=== PATIENT | male | born 1965 | race Hispanic/Latino ===

== ENCOUNTER 2018-09-12 02:37 | Emergency (ER) | payer SELFPAY ==
[2018-09-12] MEDS ORDERED: THIAMINE 200 MG/2 ML INJ ONE (03:08)
[2018-09-12] MEDS ORDERED: NA CHLORIDE 0.9% 1,000 ML ONE (03:08)
[2018-09-12] MEDS ORDERED: MULTIVITAMINS 10 ML VIAL (INJ) IV ONE (03:08)
[2018-09-12] MEDS ORDERED: FOLIC ACID 5 MG/ML VIAL ONE (03:10)
[2018-09-12 03:36] LABS: Absolute Lymphocytes (CBC) 3.6 K/uL (0.7-4.9); Absolute Neutrophil 11.4 K/uL (1.8-8.0); Basophils % 0.4 % (0-1.3); Eosinophils % 0.2 % (0-4.4); Lymphocytes % 22.4 % (15.3-44.8); MPV 9.1 fL (7.6-11.3); RBC Red Blood Cell Count 5.05 M/uL (4.33-5.43)
[2018-09-12 03:45] LABS: ALT/SGPT 41 U/L (12-78); AST/SGOT 23 U/L (15-37); Alkaline Phosphatase 110 U/L (45-117); BUN Blood Urea Nitrogen 23 mg/dL (7-18); Bicarbonate 25 mmol/L (21-32); Bilirubin Direct < 0.1 mg/dL (0-0.2); Bilirubin Total 0.2 mg/dL (0.2-1.0); Glucose Level 242 mg/dL (74-106); Potassium 3.7 mmol/L (3.5-5.1); Protein, Total 8.1 g/dL (6.4-8.2); Sodium Level 140 mmol/L (136-145)
--- NOTE | 2018-09-12 04:18 | EDPHYS ---
Physician Documentation [facility] Name: Zac Herndon Jr Age: 53 yrs Sex: Male : 1965 Arrival Date: 09/12/2018 Time: 02:38 Bed 4 Private MD: Osmar Berumen V ED Physician Alex Galdamez HPI: 09/12 03:28 This 53 yrs old Male presents to ER via Wheelchair with complaints of Head pkl Injury-Adult, Fall Injury. 03:29 The patient or guardian reports pain, swelling. The complaints affect the vertex. pkl Context of injury: resulted from a fall. Onset: The symptoms/episode began/occurred just prior to arrival. Associated signs and symptoms: Loss of consciousness: This patient experience a loss of consciousness, unable to remember how long. Patient admits to drinking alcohol earlier. Historical: - Allergies: 02:50 No Known Allergies; rr5 - Home Meds: 02:50 None [Active]; rr5 - PMHx: 02:50 None; rr5 - PSHx: 02:50 None; rr5 - Immunization history:: Adult Immunizations up to date. - Social history:: Smoking status: Patient/guardian denies using tobacco, Patient uses alcohol, occasionally. Patient/guardian denies using street drugs. - Ebola Screening: : Patient negative for fever greater than or equal to 101.5 degrees Fahrenheit, and additional compatible Ebola Virus Disease symptoms Patient denies exposure to infectious person Patient denies travel to an Ebola-affected area in the 21 days before illness onset. ROS: 03:29 Eyes: Negative for injury, pain, redness, and discharge, ENT: Negative for injury, pkl pain, and discharge, Neck: Negative for injury, pain, and swelling, Cardiovascular: Negative for chest pain, palpitations, and edema, Respiratory: Negative for shortness of breath, cough, wheezing, and pleuritic chest pain, Abdomen/GI: Negative for abdominal pain, nausea, vomiting, diarrhea, and constipation, Back: Negative for injury and pain, : Negative for injury, bleeding, discharge, and swelling, MS/Extremity: Negative for injury and deformity. 03:29 Skin: Positive for hematoma, vertex. 03:29 Neuro: Positive for loss of consciousness, hematoma vertex. Exam: 03:29 Eyes: Pupils equal round and reactive to light, extra-ocular motions intact. Lids and pkl lashes normal. Conjunctiva and sclera are non-icteric and not injected. Cornea within normal limits. Periorbital areas with no swelling, redness, or edema. 03:29 Head/face: Noted is hematoma, that is moderate, of the vertex. 03:29 ENT: Exam is negative for acute changes. 03:29 Neck: Exam negative for obvious evidence of injury or deformity, nuchal rigidity. 03:29 Chest/axilla: Exam negative for acute changes. 03:29 Cardiovascular: Rate: normal, Rhythm: regular. 03:29 Respiratory: the patient does not display signs of respiratory distress, Respirations: normal, Breath sounds: are clear throughout. 03:29 Abdomen/GI: Bowel sounds: normal, Palpation: abdomen is soft and non-tender, in all quadrants. 03:29 Back: Exam negative for acute changes. 03:29 : Exam negative for acute changes. 03:29 Musculoskeletal/extremity: Exam is negative for acute changes. 03:29 Skin: Exam negative for rash. 03:29 Neuro: Orientation: is normal, Mentation: is normal, Cranial nerves: grossly normal, Cerebellar function: normal finger to nose testing, heel to cabral testing is normal, Motor: is normal, Gait: is steady. Vital Signs: 02:45 BP 131 / 92; Pulse 95; Resp 17; Temp 97.8; Pulse Ox 100% ; Weight 81.65 kg; Height 5 rr5 ft. 5 in. (165.10 cm); 03:30 BP 112 / 72; Pulse 86; Resp 15; Pulse Ox 96% ; rr5 04:00 BP 104 / 63; Pulse 85; Resp 15; Pulse Ox 100% ; rr5 04:30 BP 117 / 76; Pulse 89; Resp 16; Pulse Ox 99% ; rr5 05:15 BP 115 / 71; Pulse 80; Resp 17; Pulse Ox 99% ; rr5 02:45 Body Mass Index 29.95 (81.65 kg, 165.10 cm) rr5 [place] Coma Score: 02:45 Eye Response: spontaneous(4). Verbal Response: oriented(5). Motor Response: obeys rr5 commands(6). Total: 15. 03:29 Eye Response: spontaneous(4). Verbal Response: oriented(5). Motor Response: obeys pkl commands(6). Total: 15. MDM: 02:42 Patient medically screened. pkl 04:16 Data reviewed: vital signs, nurses notes, lab test result(s), radiologic studies, CT pkl scan. 09/12 02:53 Order name: CBC with Diff; Complete Time: 03:43 pkl 09/12 02:53 Order name: Chem 7; Complete Time: 03:47 pkl 09/12 02:53 Order name: LFT's; Complete Time: 03:47 pkl 09/12 02:53 Order name: ETOH Level; Complete Time: 04:19 pkl 09/12 02:53 Order name: CT Head Brain wo Cont pkl Administered Medications: 03:20 Drug: Banana Bag - (NS 0.9% 1000 ml, foLIC Acid 1 mg, Thiamine 100 mg, Multivitamin 1 ea amp) Route: IV; Rate: calculated rate; Site: left antecubital; 05:15 Follow up: Response: No adverse reaction; IV Status: Completed infusion; IV Intake: rr5 1000ml Disposition: 09/12/18 04:17 Discharged to Home. Impression: Head injury. Hematoma scalp. S/P Fall. Ingestion of alcohol. - Condition is Stable. - Medication Reconciliation Form, Thank You Letter, Antibiotic Education, Prescription Opioid Use form. - Follow up: Osmar Berumen MD; When: 2 - 3 days; Reason: Re-evaluation by your physician. - Problem is new. - Symptoms have improved. Signatures: Dispatcher [employer] EDMS Alex Galdamez MD MD pkCaridad Dhillon RN Abel Kang ea RN RN rr5 Corrections: (The following items were deleted from the chart) 05:19 04:17 09/12/2018 04:17 Discharged to Home. Impression: Head injury. Hematoma scalp. S/P rr5 Fall. Ingestion of alcohol. Condition is Stable. Forms are Medication Reconciliation Form, Thank You Letter, Antibiotic Education, Prescription Opioid Use. Follow up: Osmar Berumen; When: 2 - 3 days; Reason: Re-evaluation by your physician. Problem is new. Symptoms have improved. pkl
--- NOTE | 2018-09-12 04:18 | ER ---
Nurse's Notes [facility] Name: Zac Herndon Jr Age: 53 yrs Sex: Male : 1965 Arrival Date: 09/12/2018 Time: 02:38 Bed 4 Private MD: Osmar Berumen V Diagnosis: Head injury. Hematoma scalp. S/P Fall. Ingestion of alcohol Presentation: 09/12 02:45 Presenting complaint: states: he fell down in the bathroom hit his head and walked rr5 back to bed cannot remember what really happened according to him. around 20 minutes ago that was. 02:45 Transition of care: patient was not received from another setting of care. Mechanism of rr5 Injury: The problem was sustained at home, resulted from a fall, slipped. Risk considerations:. Onset of symptoms was September 12, 2018. Risk Assessment: Do you want to hurt yourself or someone else? Patient reports no desire to harm self or others. Initial Sepsis Screen: Does the patient meet any 2 criteria? No. Patient's initial sepsis screen is negative. Does the patient have a suspected source of infection? No. Patient's initial sepsis screen is negative. 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 Care prior to arrival: None. 02:45 Method Of Arrival: Wheelchair rr5 02:45 Acuity: DONNIE 3 rr5 Triage Assessment: 03:30 Neuro: Reports fell down in the bathroom. rr5 Historical: - Allergies: 02:50 No Known Allergies; rr5 - Home Meds: 02:50 None [Active]; rr5 - PMHx: 02:50 None; rr5 - PSHx: 02:50 None; rr5 - Immunization history:: Adult Immunizations up to date. - Social history:: Smoking status: Patient/guardian denies using tobacco, Patient uses alcohol, occasionally. Patient/guardian denies using street drugs. - Ebola Screening: : Patient negative for fever greater than or equal to 101.5 degrees Fahrenheit, and additional compatible Ebola Virus Disease symptoms Patient denies exposure to infectious person Patient denies travel to an Ebola-affected area in the 21 days before illness onset. Screenin:50 Abuse screen: Denies threats or abuse. Denies injuries from another. Nutritional rr5 screening: No deficits noted. Tuberculosis screening: No symptoms or risk factors identified. Fall Risk Fall in past 12 months (25 points). IV access (20 points). Gait- Weak (10 pts.). Mental Status- Oriented to own ability (0 pts). Total [place] Fall Scale indicates High Risk Score (45 or more points). Fall prevention measures have been instituted. Side Rails Up X 2 Placed Close to Nursing Station Frequent Obs/Assessments Occuring Family Present and informed to notify staff if the need to leave the bedside As available patient and family educated on Fall Prevention Program and Strategies. Assessment: 02:50 General: Appears in no apparent distress. uncomfortable, Behavior is calm, cooperative, rr5 appropriate for age. Pain: Complains of pain in head Pain does not radiate. Quality of pain is described as aching, Pain began gradually, Is intermittent. 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 Full function Speech is normal, Facial symmetry appears normal, Pupils are PERRLA. Cardiovascular: Capillary refill < 3 seconds Patient's skin is warm and dry. Respiratory: Airway is patent Respiratory effort is even, unlabored, Respiratory pattern is regular, symmetrical. GI: No signs and/or symptoms were reported involving the gastrointestinal system. : No signs and/or symptoms were reported regarding the genitourinary system. EENT: No signs and/or symptoms were reported regarding the EENT system. Derm: Skin is intact, Skin temperature is warm swelling noted at right parietal area. 02:50 Musculoskeletal: Swelling present in right parietal area. rr5 03:20 Reassessment: Patient appears in no apparent distress at this time. back from CT scan, rr5 asleep arouse easily. awaiting for urine specimen. 04:30 Reassessment: Patient appears in no apparent distress at this time. Patient is alert, rr5 oriented x 3, equal unlabored respirations, skin warm/dry/pink. asleep on bed for discharge awaiting for the drip to consume. 05:15 Reassessment: Patient appears in no apparent distress at this time. Patient is alert, rr5 oriented x 3, equal unlabored respirations, skin warm/dry/pink. 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 able to stand up at bedside. obeys command GCS 15/15. Vital Signs: 02:45 BP 131 / 92; Pulse 95; Resp 17; Temp 97.8; Pulse Ox 100% ; Weight 81.65 kg; Height 5 rr5 ft. 5 in. (165.10 cm); 03:30 BP 112 / 72; Pulse 86; Resp 15; Pulse Ox 96% ; rr5 04:00 BP 104 / 63; Pulse 85; Resp 15; Pulse Ox 100% ; rr5 04:30 BP 117 / 76; Pulse 89; Resp 16; Pulse Ox 99% ; rr5 05:15 BP 115 / 71; Pulse 80; Resp 17; Pulse Ox 99% ; rr5 02:45 Body Mass Index 29.95 (81.65 kg, 165.10 cm) rr5 [place] Coma Score: 02:45 Eye Response: spontaneous(4). Verbal Response: oriented(5). Motor Response: obeys rr5 commands(6). Total: 15. 03:29 Eye Response: spontaneous(4). Verbal Response: oriented(5). Motor Response: obeys pkl commands(6). Total: 15. ED Course: 02:38 Patient arrived in ED. am2 02:38 Osmar Berumen MD is Private Physician. am2 02:42 Alex Galdamez MD is Attending Physician. pkl 02:45 Arm band placed on right wrist. rr5 02:50 Patient has correct armband on for positive identification. Placed in gown. Bed in low rr5 position. Call light in reach. Side rails up X2. front desk monitor on. Pulse ox on. NIBP on. 02:51 Abel Benoit RN is Primary Nurse. rr5 02:55 Ice pack to injury. rr5 02:56 Triage completed. rr5 03:07 Initial lab(s) drawn, by in, sent to lab. Inserted saline lock: 20 gauge in left lt1 antecubital area, using aseptic technique. 03:26 CT Head Brain wo Cont In Process Unspecified. EDMS 04:16 Osmar Berumen MD is Referral Physician. pkl 05:17 No provider procedures requiring assistance completed. IV discontinued, intact, rr5 bleeding controlled, No redness/swelling at site. Pressure dressing applied. Administered Medications: 03:20 Drug: Banana Bag - (NS 0.9% 1000 ml, foLIC Acid 1 mg, Thiamine 100 mg, Multivitamin 1 ea amp) Route: IV; Rate: calculated rate; Site: left antecubital; 05:15 Follow up: Response: No adverse reaction; IV Status: Completed infusion; IV Intake: rr5 1000ml Intake: 05:15 IV: 1000ml; Total: 1000ml. rr5 Outcome: 04:17 Discharge ordered by . mohan 05:17 Discharged to home via wheelchair, with family. rr5 05:17 Condition: stable 05:17 Discharge instructions given to patient, family, Instructed on discharge instructions, follow up and referral plans. Demonstrated understanding of instructions, follow-up care. 05:19 Patient left the ED. rr5 Signatures: Dispatcher [employer] EDAlex Day MD MD pkl Chioma Ojeda Elena, RN RN Abel Adams RN RN rr5 Maryuri Freedman 1
--- NOTE | 2018-09-13 12:21 | RAD REPORT ---
EXAM DESCRIPTION: CT - Head Brain Wo Cont - 09/12/2018 3:26 am CLINICAL HISTORY: The patient is 53 years old and is Male; fall, hematoma scalp TECHNIQUE: Axial computed tomography images of the head/brain without intravenous contrast. Sagitt al and coronal reformatted images were created and reviewed. This CT exam was performed using one o r more of the following dose reduction techniques: automated exposure control, adjustment of the mA and/or kV according to patient size, and/or use of iterative reconstruction technique. COMPARISON: No relevant prior studies available. FINDINGS: BRAIN: Unremarkable. The bauer-white matter differentiation is preserved . No hemorrhag e. No significant white matter disease. No edema. No extra-axial fluid collections. VENTRICLES: Unremarkable. No ventriculomegaly. BONES/JOINTS: No acute fracture. SOFT TISSUES: Right parietal scalp hematoma is present. SINUSES: Mucoperiosteal thickening of the right maxillary sinus is present. MASTOID AIR CELLS: Unremarkable as visualized. No mastoid effusion. IMPRESSION: No acute intracranial findings. Right parietal scalp hematoma. Electronically signed by: Roxy Vines MD 09/12/2018 3:31 AM CDT Due to temporary technical issues with the PACS/Fluency reporting system, reports are being signed by the in house radiologist as a courtesy to ensure prompt reporting. The interpreting radiologist is f ully responsible for the content of the report.
== END 2018-09-12 05:19 | disposition home or self-care (01) ==
LOC: ER 02:37
DX: S00.03XA Contusion of scalp, initial encounter (principal); W19.XXXA Unspecified fall, initial encounter; R55 Syncope and collapse; Z72.89 Other problems related to lifestyle
CPT/HCPCS: 36415; 70450; 80048; 80076; 80320; 85025; 96365; 96366; 99284; J3411; J7030